=== PATIENT | male | born 1950 | race Caucasian/White ===

== ENCOUNTER 2022-08-26 04:14 | Emergency (ER) | payer MEDICARE, MEDICAID ==
[~2022-08-26] VITALS: Ht 175.3 cm; Wt 68.2 kg
[~2022-08-26 04:14] MED LIST: LEVE500T PO; POTA10TA15 PO
--- NOTE | 2022-08-26 04:56 | NUR ---
edb case #[id number] pt picked up at [id number] ([address])
--- NOTE | 2022-08-26 05:04 | NUR ---
housing via [facility]
[2022-08-26] MEDS ORDERED: tetanus & diphtheria toxoid (Td) vaccine 0.5ml IMVAC ONE (05:05)
--- NOTE | 2022-08-26 05:06 | NUR ---
pt to [place]
[2022-08-26 05:09] LABS: ALANINE AMINOTRANSFERASE 24 U/L (12-78); ALBUMIN 3.8 G/DL (3.4-5.0); ALKALINE PHOSPHATASE 68 IU/L (46-116); ANION GAP 12 (8-16); ASPARTATE AMINO TRANSFERASE 19 U/L (10-37); BILIRUBIN,TOTAL 0.3 MG/DL (0.1-1.0); BLOOD UREA NITROGEN 15 MG/DL (7-18); CALCIUM 9.1 MG/DL (8.5-10.1); CHLORIDE 105 MMOL/L (99-107); CREATININE 1.07 MG/DL (0.60-1.10); GLUCOSE 172 MG/DL (70-104); SODIUM 139 MMOL/L (135-145); TOTAL CARBON DIOXIDE 22.2 MMOL/L (24-32); TOTAL PROTEIN 7.8 G/DL (6.4-8.2); eGFR 68 ML/MIN
[2022-08-26 05:13] LABS: POTASSIUM 3.7 MMOL/L (3.5-5.1)
[2022-08-26] MEDS ORDERED: TETanus/Pertussis (Acell)/Diphther VAC/PF (Tdap-Adult) 0.5ml syringe IMVAC ONE (05:15)
--- NOTE | 2022-08-26 05:35 | NUR ---
PER DR FINCH, CBC NOT NEEDED AND REPEAT TROP NOT NEEDED.
--- NOTE | 2022-08-26 05:54 | NUR ---
[facility] called for pt ride home back to [id number], [place], [address]. pt states has house [place] on him and able to ambulate from cab to home. eta 15 min.
[2022-08-26 06:03] VITALS: BP 120/82
== END 2022-08-26 05:54 | disposition home or self-care (01) ==
LOC: ER 04:15
DX: S01.111A Laceration without foreign body of right eyelid and periocular area, initial encounter (principal); R07.9 Chest pain, unspecified; J44.9 Chronic obstructive pulmonary disease, unspecified; K21.9 Gastro-esophageal reflux disease without esophagitis; Z88.5 Allergy status to narcotic agent; W19.XXXA Unspecified fall, initial encounter; Y93.89 Activity, other specified; Y92.89 Other specified places as the place of occurrence of the external cause; Y99.8 Other external cause status
CPT/HCPCS: 12011; 36415; 70450; 71250; 80053; 83735; 83880; 84484; 90471; 90715; 93005; 99285

== ENCOUNTER 2023-09-04 09:11 | Emergency (ER) | payer MEDICARE, MEDICAID ==
[~2023-09-04] VITALS: Ht 175.3 cm; Wt 69.0 kg
[2023-09-04 09:13] VITALS: BP 117/73; PULSE 74; RESP 16; TEMP 97.5; O2SAT 98
[2023-09-04 09:52] LABS: BILIRUBIN,URINE NEGATIVE (Neg); CLARITY,URINE CLEAR (Clear); COLOR,URINE YELLOW (Yellow); GLUCOSE, URINE NEGATIVE (Neg); KETONES,URINE NEGATIVE (Neg); LEUKOCYTE ESTERASE ,URINE NEGATIVE (Neg); NITRITES, URINE NEGATIVE (Neg); OCCULT BLOOD,URINE MODERATE (Neg); PROTEIN,URINE NEGATIVE (Neg); UROBILINOGEN,URINE 0.2 E.U/dL (0.2-1.0)
[2023-09-04 10:02] LABS: UA COLLECTION TYPE VOIDED
[2023-09-04 10:11] LABS: HYALINE CASTS 0-3 /LPF (NEGATIVE)
[2023-09-04 10:15] LABS: SQUAMOUS EPITHELIAL CELL,UR FEW /LPF (FEW)
[2023-09-04 10:16] LABS: MUCUS STRANDS FEW /LPF (Neg); WBC,URINE 0-4 /HPF (0-4)
[2023-09-04 10:17] LABS: BACTERIA,URINE FEW /HPF (Neg)
== END 2023-09-04 14:00 | disposition left against medical advice (07) ==
LOC: ER 09:11
DX: R10.9 Unspecified abdominal pain (principal); R31.9 Hematuria, unspecified; Z53.21 Procedure and treatment not carried out due to patient leaving prior to being seen by health care provider
CPT/HCPCS: 81001